=== PATIENT | female | born 1990 | race Caucasian/White ===

== ENCOUNTER 2017-07-08 18:39 | Inpatient (IN) | payer OTHER ==
[2017-07-08 19:20] VITALS: BMI 27.6
[2017-07-08] MEDS ORDERED: Promethazine HCl 25 MG/ML VIAL IM PRN (19:29)
[2017-07-08] MEDS ORDERED: Ibuprofen 800 MG TAB PO PRN (19:29)
[2017-07-08] MEDS ORDERED: Calcium Gluc 4.6 MEQ/10 ML (100 MG/ML) SLOW IVP PRN (19:29)
[2017-07-08] MEDS ORDERED: Lidocaine 1% (PF) 30 ML VIAL SC PRN (19:29)
[2017-07-08] MEDS ORDERED: HYDROcodone/Acetaminophen 5/325 mg Tablet PO PRN ×2 (19:29)
[2017-07-08] MEDS ORDERED: Ondansetron HCl/PF 4 MG/2 ML Vial IVP PRN (19:29)
--- NOTE | 2017-07-08 19:35 | PDOC.LDHP ---
Labor and Delivery H&P Chief complaint: other (Patient was sent to Radha Bassett at [facility] by outside hog killer for elevated BP eval at 38 weeks. No sxs PIH. 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 Patient is a 26 yo at 38 weeks 5 days, doing well. Negative HX but was seeing some elevated BPs over last few days. Presented to Radha Bassett for eval of PIH today. Here for induction due to same. Review of systems: no BALL or visual changes. Good FM. No VB nor LOF. Grav: 1 Para: 0 Current complications: none Abnormal US findings: No Current medications: none Previous surgical history: other Allergies/Adverse Reactions: Allergies Allergy/AdvReac Type Severity Reaction Status Date / Time No Known Allergies Allergy Unverified 07/08/17 19:10 Social history: none - Physical Exam Vital signs reviewed and normal: yes Abnormal vital signs: BP elevated at 150/100s General: NAD Heart: RRR Lungs: CTAB Abdomen: gravid (EFW approx 6 # clinical assessment) Extremeties: no edema FHT: category 1 [place] contractions every: none - Vaginal Exam cm dilated: 1 (per RN exam while I was in room) Effacement: 75% Station: -1 - OB Labs Blood type: O RH: positive - Assessment L&D Assessment: medically indicated induction (DX: induced Hypertension.) - Plan Plan: admit to L&D, cervical ripening (Cytotec 25mcg PV as cx 1cm.), informed consent obtained, anesthesia consult for pain management, other (We have ordered CMP, urine Protein/Creatinine ratio, and CBC. If proteinuric, then DX will be preeclampsia. Await lab assessment to see if any severe criteria. MgSo4 for any severe criteria. GBS neg)
[2017-07-08] MEDS: Lactated Ringer's 1,000 ML IV SCH (20:00)
[2017-07-08 20:17] LABS: Hemoglobin 12.5 g/dL (12.0-16.0); Mean Corpuscular HGB CONC 34.3 g/dL (32.0-36.0); Mean Corpuscular Hemoglobin 33.1 pg (27.0-31.0); Mean Corpuscular Volume 96.5 fl (81.0-99.0); Mean Platelet Volume 10.4 fL (7.4-10.4); Platelet Count 184 thou/uL (130-400); RBC Distribution Width 12.1 % (11.5-14.5); Red Blood Cell (RBC) Count 3.79 mill/uL (4.20-5.40); White Blood Cell (WBC) Count 11.5 thou/uL (4.8-10.8)
[2017-07-08 20:50] LABS: ALT (SGPT) 52 U/L (8-55); AST (SGOT) 45 U/L (5-34); Albumin 3.3 g/dL (3.5-5.0); Alkaline Phosphatase 183 U/L (40-150); Anion Gap 12 mmol/L (10-20); BUN (Urea Nitrogen) 12 mg/dL (7.0-18.7); Bilirubin, Total 0.6 mg/dL (0.2-1.2); Calc. Creatinine Clearance 159 mL/min (70-130); Calcium 8.6 mg/dL (7.8-10.44); Carbon Dioxide 20 mmol/L (22-29); Chloride 108 mmol/L (98-107); Estimated GFR-MDRD Greater than 90; Globulin 3.3 g/dL (2.4-3.5); Glucose 80 mg/dL (70-105); Potassium 4.3 mmol/L (3.5-5.1); Protein, Total 6.6 g/dL (6.0-8.3); Sodium 136 mmol/L (136-145)
[2017-07-08 20:56] LABS: Syphilis Antibody Nonreactive (Nonreactive); Syphilis Antibody Index 0.02 S/CO (<1.00 Non-Reactive)
[2017-07-08] MEDS: Misoprostol 100 MCG TAB VAG SCH (21:00)
--- NOTE | 2017-07-08 21:06 | PDOC.EVN ---
Event Note - Event Note Event Note: Lab check: only isolated finding is AST 45 (avery 2X normal). Diastolics are 100- 105. I will give 10mg labetolol SIVP X 1 now. No PIH sxs.
[2017-07-08] MEDS ORDERED: Labetalol HCl 100 MG/20 ML VIAL SLOW IVP SCH (21:15)
[2017-07-08 22:18] LABS: Creatinine, Urine 46.51 mg/dL (47-110); Protein, Urine Random Quant Less than 10 mg/dL
--- NOTE | 2017-07-08 22:19 | PDOC.EVN ---
Event Note - Event Note Event Note: @2220: FHT strip check done. Mod variability, irregular CTX noted. BPs 140/90s
[2017-07-08 23:00] LABS: HBSAg Index 0.12 S/CO (0-0.99); HIV (1/2) Antibody/Antigen Non-Reactive (NonReactive); HIV 1/2 INDEX 0.09 S/CO (<1.00); Hep B Surf Ag Non-Reactive S/CO (NonReactive)
[2017-07-09] MEDS: Misoprostol 100 MCG TAB VAG SCH ×4 (02:20→11:03)
[2017-07-09] MEDS: Lactated Ringer's 1,000 ML IV SCH (05:23)
[2017-07-09] MEDS: LR / Pitocin 40 units/1000 ml 1,000 ML IV PRN ×2 (10:20→11:33)
--- NOTE | 2017-07-09 13:06 | DN ---
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 The patient delivered a male infant on 07/09/2017 at 10:08 a.m. by an uncomplicated term spontaneous vaginal delivery. Gestational age is 38 weeks and 6 days. Apgars were 8 and 9. Delivery weight is unavailable at the time of dictation. Placenta delivered spontaneously followed b y Pitocin infusion. There was a second degree laceration repaired in usual fashion for hemostasis. ESTIMATED BLOOD LOSS: 200 mL. DELIVERING PHYSICIAN: Dr. Tanner Mane Mother and baby are stable in the immediate .
[2017-07-09] MEDS ORDERED: Milk Of Magnesia 30 ML UDCUP PO PRN (14:03)
[2017-07-09] MEDS ORDERED: Bisacodyl 10 MG SUPP PR PRN (14:03)
[2017-07-09] MEDS ORDERED: Lanolin Ointment 7 GM TUBE TOP PRN (14:03)
[2017-07-09] MEDS ORDERED: Acetaminophen/Codeine 30-300mg Tablet PO PRN ×2 (14:03)
[2017-07-09] MEDS ORDERED: Benzocaine/Menthol 20-0.5% 60 ML CAN TOP PRN (14:03)
[2017-07-09] MEDS ORDERED: Preparation H Ointment 28 GM TUBE PR PRN (14:03)
[2017-07-09] MEDS ORDERED: Ondansetron HCl/PF 4 MG/2 ML Vial IVP PRN (14:03)
[2017-07-09] MEDS ORDERED: LR / Pitocin 40 units/1000 ml 1,000 ML IV SCH (14:03)
[2017-07-09] MEDS ORDERED: Adacel (T-DAP) 0.5 ML VIAL IM ONE (14:03)
[2017-07-09] MEDS: Ferrous Sulfate 325 MG TAB PO SCH (17:36)
[2017-07-09] MEDS: Ibuprofen 800 MG TAB PO SCH ×2 (17:37→19:39)
[2017-07-09] MEDS: Docusate Calcium (SURFAK) 240 MG CAP PO SCH (19:39)
[2017-07-10] MEDS: Ibuprofen 800 MG TAB PO SCH ×3 (05:13→22:15)
--- NOTE | 2017-07-10 06:56 | PRG ---
DATE OF SERVICE: 07/10/2017 HISTORY OF PRESENT ILLNESS: The patient is a 26-year-old female day 1, status post an uncomplicated term spontaneous vaginal delivery. She was diagnosed with gestational hypertension at the time of admission. Her course has been uncomplicated. Pt reports she is ambulating, tolerating PO, voiding on her own, has good pain control, and decreased lochia. Vital signs reviewed and normal with BP in normal range since delivery NAD Fundus firm extremities NTTP A/P PPD#1 Blood pressures have remained in the normal range since delivery. Anticipate discharge tomorrow. NANO
[2017-07-10] MEDS: Prenatal Vitamin 1 TAB PO SCH (09:04)
[2017-07-10] MEDS: Docusate Calcium (SURFAK) 240 MG CAP PO SCH ×2 (09:04→22:15)
[2017-07-10] MEDS: Ferrous Sulfate 325 MG TAB PO SCH ×2 (09:05→17:28)
[2017-07-10] MEDS: Lactated Ringer's 1,000 ML IV SCH (09:26)
[2017-07-10] MEDS: Misoprostol 100 MCG TAB VAG SCH (09:26)
[2017-07-11] MEDS: Ibuprofen 800 MG TAB PO SCH (05:09)
[2017-07-11 08:08] VITALS: BP 127/92; TEMP 98.3
[2017-07-11] MEDS: Ferrous Sulfate 325 MG TAB PO SCH (08:11)
[2017-07-11] MEDS: Docusate Calcium (SURFAK) 240 MG CAP PO SCH (08:48)
[2017-07-11] MEDS: Prenatal Vitamin 1 TAB PO SCH (08:48)
== END 2017-07-11 12:00 | disposition home or self-care (01) | DRG 775 ==
LOC: L&D/OP 18:39 → L&D 20:22 → 3SW 07-09 17:29
PROVIDERS: ADMIT Obstetrics & Gynecology; ATTEND Obstetrics & Gynecology
PROC: 3E0P7VZ Introduction of Hormone into Female Reproductive, Via Natural or Artificial Opening (ICD-10-PCS; 2017-07-08)
PROC: 10E0XZZ Delivery of Products of Conception, External Approach (ICD-10-PCS; principal; 2017-07-09)
PROC: 0KQM0ZZ Repair Perineum Muscle, Open Approach (ICD-10-PCS; 2017-07-09)
DX: O13.3 Gestational [pregnancy-induced] hypertension without significant proteinuria, third trimester (principal); O70.1 Second degree perineal laceration during delivery; Z3A.38 38 weeks gestation of pregnancy; Z37.0 Single live birth
CPT/HCPCS: 51702; 80053; 82570; 84156; 85027; 86780; 87340; 87389; 90715; J2001

== ENCOUNTER 2019-05-26 13:07 | Day surgery (SDC) | payer BC ==
[2019-05-26] MEDS ORDERED: hydrALAZINE 20 MG/ML VIAL SLOW IVP PRN (13:34)
[2019-05-26 13:52] VITALS: BMI 27.3
[2019-05-26 15:21] LABS: #Eosinphils 0.1 thou/uL (0.0-0.7); #Lymphocytes 1.9 thou/uL (1.20-3.40); #Monocytes 0.9 thou/uL (0.11-0.59); #Neutrophils 11.7 thou/uL (1.40-6.50); %Basophils 0.2 % (0.0-1.0); %Eosinophils 0.6 % (0.0-10.0); %Lymphocytes 12.9 % (21.0-51.0); %Neutrophils 80.3 % (42.0-75.0); Hemoglobin 11.4 g/dL (12.0-16.0); Mean Corpuscular HGB CONC 34.8 g/dL (32.0-36.0); Mean Corpuscular Hemoglobin 32.5 pg (27.0-31.0); Mean Corpuscular Volume 93.5 fL (78.0-98.0); Mean Platelet Volume 9.1 fL (7.4-10.4); Platelet Count 207 thou/uL (130-400); RBC Distribution Width 11.4 % (11.5-14.5); White Blood Cell (WBC) Count 14.6 thou/uL (4.8-10.8)
[2019-05-26 15:43] LABS: ALT (SGPT) 8 U/L (8-55); AST (SGOT) 21 U/L (5-34); Albumin 3.2 g/dL (3.5-5.0); Alkaline Phosphatase 248 U/L (40-110); Anion Gap 10 mmol/L (10-20); BUN (Urea Nitrogen) 10 mg/dL (7.0-18.7); Bilirubin, Total 0.4 mg/dL (0.2-1.2); Calc. Creatinine Clearance 166 mL/min (70-130); Calcium 8.6 mg/dL (7.8-10.44); Carbon Dioxide 25 mmol/L (22-29); Chloride 106 mmol/L (98-107); Estimated GFR-MDRD Greater than 90; Globulin 2.8 g/dL (2.4-3.5); Glucose 87 mg/dL (70-105); Potassium 3.4 mmol/L (3.5-5.1); Sodium 138 mmol/L (136-145)
--- NOTE | 2019-05-26 16:27 | PDOC.LDHP ---
Labor and Delivery H&P Chief complaint: other HPI: Patient was sent to L&D for GHTN workup. She had two elevated BPs in the clinic today. 140/86 and 142/88. She denies BALL, RUQ pain, or changes in her vision. Current gestational age (weeks): 39 (2 days) Due date: 05/31/19 Dating criteria: last menstrual period Grav: 2 OB History Details: at 39, GHTN Current complications: none Abnormal US findings: No Current medications: pre-deric vitamins Previous surgical history: none Allergies/Adverse Reactions: Allergies Allergy/AdvReac Type Severity Reaction Status Date / Time No Known Allergies Allergy Verified 05/26/19 13:53 Social history: none - Physical Exam Vital signs reviewed and normal: yes General: resting Lungs: nonlabored breathing Abdomen: gravid FHT: category 1 - OB Labs Blood type: O RH: positive Antibody Screen: negative HIV: negative RPR: negative HEPSAg: negative 1 hour GCT: negative GBS: positive Urine drug screen: negative Rubella: immune Additional Labs: Laboratory Tests 05/26/19 05/26/19 15:00 15:00 WBC 14.6 H Hgb 11.4 L Hct 32.7 L Plt Count 207 Potassium 3.4 L AST 21 ALT 8 - Assessment A: Normotensive with normal labs. P: discharge home in good condition. Home BP monitoring, report readings that are 140/90s Keep routine visit next week. - Plan -: Discharge home, routine follow up
[2019-05-26] MEDS ORDERED: Potassium Chloride 20 MEQ TAB PO SCH (17:00)
== END 2019-05-26 17:22 | disposition home health service (06) ==
LOC: L&D/OP 13:07
PROVIDERS: ATTEND Student in an Organized Health Care Education/Training Program
DX: O16.3 Unspecified maternal hypertension, third trimester (principal); Z3A.39 39 weeks gestation of pregnancy; Z79.82 Long term (current) use of aspirin
CPT/HCPCS: 36415; 80053; 82570; 84156; 85025; 99283

== ENCOUNTER 2019-05-28 10:05 | Day surgery (SDC) | payer BC ==
[2019-05-28] MEDS ORDERED: hydrALAZINE 20 MG/ML VIAL SLOW IVP PRN (10:35)
[2019-05-28 10:43] VITALS: TEMP 99.3; BMI 27.3
--- NOTE | 2019-05-28 11:17 | PDOC.LDHP ---
Labor and Delivery H&P Chief complaint: contractions, loss of fluid HPI: Patient has been having some irregular uterine irritability for several week. But this morning, she lost some mucus and then had a small gush of fluid. she has not had any leaking since then. the is moving normally. On Thursday she was dilated to 3/50/-2 Current gestational age (weeks): 39 Due date: 05/31/19 Dating criteria: last menstrual period Grav: 2 Para: 1 OB History Details: IOL at 39 weeks in 2018 for GHTN. Current complications: none Abnormal US findings: No Current medications: pre- vitamins Previous surgical history: none Allergies/Adverse Reactions: Allergies Allergy/AdvReac Type Severity Reaction Status Date / Time No Known Allergies Allergy Verified 05/26/19 13:53 Social history: none - Physical Exam Abnormal vital signs: 141/70 repeat was 120/78 General: NAD, resting Lungs: nonlabored breathing Abdomen: gravid FHT: category 1 - OB Labs Blood type: O RH: positive Antibody Screen: negative HIV: negative RPR: negative HEPSAg: negative 1 hour GCT: negative GBS: positive Urine drug screen: negative Rubella: immune - Assessment at 39 weeks with /ro SROM - Plan -: Amnisure collected and results were negative for ROM BPs BID at home. Discharge. L&D warning given Keep routine visit in one week with Ferny Bassett in clinic
[2019-05-28 12:23] LABS: Amnisure Internal Control QC ACCEPTABLE (ACCEPTABLE); Amnisure Test No Membranes Rupture (No Rupture)
== END 2019-05-28 12:18 | disposition home health service (06) ==
LOC: L&D/OP 10:05
PROVIDERS: ATTEND Advanced Practice Midwife
DX: O47.1 False labor at or after 37 completed weeks of gestation (principal); O99.89 Other specified diseases and conditions complicating pregnancy, childbirth and the puerperium; N89.8 Other specified noninflammatory disorders of vagina; Z3A.39 39 weeks gestation of pregnancy
CPT/HCPCS: 84112; 99283

== ENCOUNTER 2019-06-04 07:05 | Inpatient (IN) | payer BC ==
[2019-06-04 07:37] VITALS: BMI 27.3
[2019-06-04] MEDS ORDERED: Penicillin G Potassium 5 MILL.UNITS VIAL ONE (07:42)
[2019-06-04] MEDS ORDERED: NS / Oxytocin 40 units/1000ml 1,000 ML IV PRN (07:47)
[2019-06-04] MEDS ORDERED: hydrALAZINE 20 MG/ML VIAL SLOW IVP PRN ×2 (07:47→19:33)
[2019-06-04] MEDS ORDERED: Ondansetron PF 4 MG/2 ML Vial IVP PRN (07:47)
[2019-06-04] MEDS ORDERED: Lidocaine 1% (PF) 30 ML VIAL SC PRN (07:47)
[2019-06-04] MEDS ORDERED: Butorphanol Tartrate 1 MG/ML VIAL SLOW IVP PRN (07:47)
[2019-06-04] MEDS ORDERED: Ibuprofen 800 MG TAB PO PRN (07:47)
[2019-06-04] MEDS ORDERED: Promethazine HCl 25 MG/ML VIAL IM PRN (07:47)
[2019-06-04] MEDS ORDERED: Penicillin G Potassium 5 MILL.UNITS in Sodium Chloride 0.9% 100 ML IVPB SCH (08:00)
[2019-06-04] MEDS ORDERED: Lactated Ringer's 1,000 ML IV SCH ×2 (08:00)
[2019-06-04 08:49] LABS: Hemoglobin 12.3 g/dL (12.0-16.0); Mean Corpuscular HGB CONC 34.1 g/dL (32.0-36.0); Mean Corpuscular Hemoglobin 32.1 pg (27.0-31.0); Mean Corpuscular Volume 94.1 fL (78.0-98.0); Mean Platelet Volume 9.5 fL (7.4-10.4); Platelet Count 200 thou/uL (130-400); RBC Distribution Width 11.9 % (11.5-14.5); Red Blood Cell (RBC) Count 3.83 mill/uL (4.20-5.40); White Blood Cell (WBC) Count 17.1 thou/uL (4.8-10.8)
[2019-06-04 09:24] LABS: Syphilis Antibody Nonreactive (Nonreactive); Syphilis Antibody Index 0.02 S/CO (<1.00 Non-Reactive)
[2019-06-04 09:25] LABS: HBSAg Index 0.23 S/CO (0-0.99); Hep B Surf Ag Non-Reactive S/CO (NonReactive)
[2019-06-04] MEDS ORDERED: Penicillin G 2.5 MILL.units 2.5 MILL.UNITS in Premix Bag 1 BAG IVPB SCH (12:00)
--- NOTE | 2019-06-04 12:58 | PDOC.LDHP ---
Labor and Delivery H&P Chief complaint: contractions HPI: Here for contractions. Current gestational age (weeks): 40 Due date: 05/31/19 Dating criteria: last menstrual period Grav: 2 Para: 1 OB History Details: 07/09/17 Male 7.15 follow IOL for GHTN Current complications: none Abnormal US findings: No Current medications: pre- vitamins Previous surgical history: other Allergies/Adverse Reactions: Allergies Allergy/AdvReac Type Severity Reaction Status Date / Time No Known Allergies Allergy Verified 06/04/19 07:33 Social history: none - Physical Exam Vital signs reviewed and normal: yes General: breathing through contractions Heart: RRR Lungs: nonlabored breathing Abdomen: gravid Extremeties: no edema FHT: category 1 (145 baseline, moderate variability, +Accels, no decels.) - Vaginal Exam cm dilated: 8 Effacement: 100% Station: -1 - OB Labs Blood type: O RH: positive Antibody Screen: negative HIV: negative RPR: negative HEPSAg: negative 1 hour GCT: negative GBS: positive Urine drug screen: negative Rubella: immune - Assessment L&D Assessment: term patient in labor - Plan Plan: admit to L&D -: Low intervention protocol.
[2019-06-04 16:56] LABS: Actual Bicarbonate (HCO3a) 18.4 mEq/L (22-28)
[2019-06-04 16:59] LABS: Actual Bicarbonate (HCO3v) 17 mEq/L (22-28); Base Excess -9.7 mEq/L (-2.0 to +3.0); pH (Cord, venous) 7.25 (7.32-7.43)
--- NOTE | 2019-06-04 17:25 | PDOC.OPDEL ---
OB Operative/Delivery Note Delivery Dr/Surgeon: Light. Schofield Pre-Delivery Diagnosis: active labor Procedure/Post Delivery Dx: spontaneous vaginal delivery Weeks gestation: 40 Anesthesia: none - Findings A Sex: male Weight: 10 lb 3 oz - 1 min: 8 - 5 min: 9 - Additional Findings/Plan Placenta delivered: spontaneous Repaired Obstetrical Laceration: episiotomy Estimated blood loss: 850mL Compilations/Other Findings: shoulder dystocia 2mins Episiotomy Endy team and Ob Hospitalist paged to room Cord gas 7.227 see dictation on repair by Dr edmond Post delivery plan: routine recovery
--- NOTE | 2019-06-04 17:45 | OP ---
DATE OF PROCEDURE: 06/04/2019 TIME OF SERVICE: Approximately 1700 hours. PREOPERATIVE DIAGNOSIS: Status post second- to superficial third-degree episiotomy with shoulder dystocia. POSTOPERATIVE DIAGNOSIS: Status post second- to superficial third-degree episiotomy with shoulder dystocia. PROCEDURE PERFORMED: Repair of third-degree episiotomy. ANESTHESIA: 20 mL of 1% lidocaine without epinephrine. COMPLICATIONS: None. MEDICATIONS: 2 g Ancef. FINDINGS: 1. Superficial third-degree episiotomy status post shoulder dystocia vaginal delivery by Abida Bassett, certified nurse waterworks chief engineer. 2. Repair with 2-0 chromic x2. 3. Correct counts. QBL: Pending. DESCRIPTION OF PROCEDURE: I presented to [facility] with a call for shoulder dystocia. By the time of my presentation, approximately 2 minutes shoulder dystocia had been relieved by episiotomy by Abida Bassett and infant was delivered. The placenta was delivered by Abida Bassett. Examination in [facility] revealed there to be a very superficial third-degree laceration. No evidence of fourth-degree laceration. Decision was made to move the patient to [facility], where bed with stirrups was available for repair. The patient was moved in this room and prepped and draped in the usual manner. [place] of the episiotomy was identified. Very superficial disruption of the sphincter capsule was noted externally and no extension episiotomy was noted, the apex was well visualized. At the anal verge, 2-0 chromic suture was placed subcuticularly and run for approximately 1-1/2 cm. After this was done, another 2-0 chromic was placed at the apex intravaginally and a running locking suture was carried out to the level of the hymenal ring. At the level of hymenal ring, the suture was brought underneath and used to reapproximate the most external portion of the anal sphincter as was the perineal body together in a running continuous manner. This suture was tied and then the subcuticular suture which had been placed below was run up on the skin at the level of the episiotomy on the perineal body up into the level of the hymenal ring, where it met the previous suture. It was tied and cut. Further inspection revealed no further lacerations, no bleeding, and no evidence of hematoma. The patient was administered 2 g of Ancef IV x1. Please see the rest of the dictation by Abida Bassett, certified nurse waterworks chief engineer, and she will provide the patient's further care. Job ID: [id number]
[2019-06-04] MEDS ORDERED: HYDROcodone/Acetaminophen 5/325 mg Tablet PO PRN ×2 (19:33)
[2019-06-04] MEDS ORDERED: Milk Of Magnesia 30 ML UDCUP PO PRN (19:33)
[2019-06-04] MEDS ORDERED: Methylergonovine 0.2 MG/ML VIAL IM PRN (19:33)
[2019-06-04] MEDS ORDERED: Bisacodyl 10 MG SUPP PR PRN (19:33)
[2019-06-04] MEDS ORDERED: NS / Oxytocin 40 units/1000ml 1,000 ML IV SCH (19:33)
[2019-06-04] MEDS ORDERED: Misoprostol 200 MCG TAB VAG PRN (19:33)
[2019-06-04] MEDS: Docusate Calcium (SURFAK) 240 MG CAP PO SCH (22:45)
[2019-06-04] MEDS: Ibuprofen 800 MG TAB PO SCH (22:46)
[2019-06-05] MEDS: Ibuprofen 800 MG TAB PO SCH ×4 (02:34→22:17)
[2019-06-05] MEDS: Docusate Calcium (SURFAK) 240 MG CAP PO SCH ×3 (02:34→22:17)
--- NOTE | 2019-06-05 07:43 | PRG ---
DATE OF SERVICE: 06/05/2019 TIME OF SERVICE: 0700 hours. SUBJECTIVE: Ms. Thompson is approximately 14 hours post with shoulder dystocia with macrosomic male infant and partial third-degree episiotomy as a 2, para 1, now 2. She is resting comfortably. She reports that she does not have severe pain in the perineum and she reports her is going well. OBJECTIVE: VITAL SIGNS: T-max 98.5, temperature 98.3, pulse 79, respirations 16, and blood pressure 118/60. HEENT: Within normal limits. LUNGS: Clear to auscultation bilaterally. HEART: Regular rate and rhythm. ABDOMEN: Soft, nontender with normal lochia. Her perineum is intact. EXTREMITIES: Without clubbing, cyanosis, or edema. IMPRESSION: Status post shoulder dystocia with third-degree episiotomy and repair less than 1 day . PLAN: Routine care. Anticipate discharge on 06/06. Routine third-degree perineal hygiene and care. Job ID: [id number]
[2019-06-05] MEDS ORDERED: Adacel (T-DAP) 0.5 ML SYRINGE IM ONE (09:00)
[2019-06-05] MEDS: Ferrous Sulfate 325 MG TAB PO SCH ×2 (09:17→18:20)
[2019-06-05] MEDS: Prenatal Vitamin 1 TAB PO SCH (09:18)
[2019-06-06] MEDS: Ibuprofen 800 MG TAB PO SCH ×2 (05:06→14:08)
[2019-06-06 08:18] VITALS: BP 122/76; TEMP 98
--- NOTE | 2019-06-06 08:25 | PDOC.PP ---
Post Progress Note Post Day #: 2 Subjective: Patient is doing well. is getting better. Episiotomy is sore but ok. PO intake tolerated: yes Flatus: yes Ambulation: yes Vital Signs (12 hours) Temp Pulse Resp BP Pulse Ox 06/06/19 08:17 98.0 F 84 20 122/76 99 Weight Weight 180 lb - Physical Examination General: NAD Respiratory: non-labored breathing Extremities: negative homans (B) Skin: no rash Neurological: no gross focal deficits Psychiatric: A&Ox3, normal affect Result Diagrams: 06/04/19 07:57 Additional Labs: Post Labs Blood Type O POSITIVE 06/04/19 07:57 Hep Bs Antigen Non-Reactive S/CO (NonReactive) 06/04/19 07:57 (1) 40 weeks gestation of Code(s): Z3A.40 - 40 WEEKS GESTATION OF Status: Acute (2) Vaginal delivery Code(s): O80 - ENCOUNTER FOR FULL-TERM UNCOMPLICATED DELIVERY Status: Acute (3) Shoulder dystocia during labor and delivery Code(s): O66.0 - OBSTRUCTED LABOR DUE TO SHOULDER DYSTOCIA Status: Acute (4) Discomfort at episiotomy site Code(s): G89.18 - OTHER ACUTE POSTPROCEDURAL PAIN Status: Acute - Assessment/Plan A: G2 now p2 sp vaginal delivery following 2 min shoulder dystocia and episiotomy. P: routine care Discharge home today. 6 weeks post visit.
[2019-06-06] MEDS: Prenatal Vitamin 1 TAB PO SCH (09:49)
[2019-06-06] MEDS: Docusate Calcium (SURFAK) 240 MG CAP PO SCH (09:49)
== END 2019-06-06 16:45 | disposition home or self-care (01) | DRG 768 ==
LOC: L&D/OP 07:05 → L&D-LIB 07:48 → 3SW 19:52
PROVIDERS: ADMIT Obstetrics & Gynecology; ATTEND Advanced Practice Midwife
PROC: 10E0XZZ Delivery of Products of Conception, External Approach (ICD-10-PCS; principal; 2019-06-04)
PROC: 0DQR0ZZ Repair Anal Sphincter, Open Approach (ICD-10-PCS; 2019-06-04)
PROC: 0W8NXZZ Division of Female Perineum, External Approach (ICD-10-PCS; 2019-06-04)
DX: O66.0 Obstructed labor due to shoulder dystocia (principal); Z37.0 Single live birth; O70.20 Third degree perineal laceration during delivery, unspecified; O13.4 Gestational [pregnancy-induced] hypertension without significant proteinuria, complicating childbirth; Z3A.40 40 weeks gestation of pregnancy
CPT/HCPCS: 36415; 82805; 85027; 86780; 86850; 86900; 86901; 87340; 99285; J0595; J0690; J2001; J2405; J2540; J3490